=== PATIENT | male | born 1990 | race Two or more races ===

== ENCOUNTER 2019-11-19 10:19 | Emergency (ER) | payer OTHER ==
[2019-11-19] MEDS ORDERED: BUPIVACAINE 0.5% PF 10 ML VIAL SUBQ STA (11:44)
--- NOTE | 2019-11-19 12:31 | XRAY Report ---
Reason: index finger nail injury from a bite Procedure Date: 11/19/2019 Accession Number: [id number] / [id number] Procedure: XR - Hand 3 View RT CPT Code: Final Report FULL RESULT: EXAM: RIGHT HAND RADIOGRAPHY EXAM DATE: 11/19/2019 11:54 AM. CLINICAL HISTORY: Index finger nail injury from a bite. COMPARISON: None. TECHNIQUE: 3 views. FINDINGS: Bones: Normal. No fractures or bone lesions. Joints: Normal. No subluxations. Soft Tissues: Normal. No soft tissue swelling. IMPRESSION: Normal hand radiography. RADIA
--- NOTE | 2019-11-19 13:58 | ED Physician Documentation ---
PD HPI UPPER EXT INJURY - Stated complaint Stated Complaint: DOG BITE - Chief complaint Chief Complaint: Laceration - History obtained from History obtained from: Patient - History of Present Illness Location: Right, Finger (index) Type of injury: Other (dog bite) Where injury occurred: Home Timing - onset: Today Timing - duration: Minutes Timing - details: Abrupt onset, Still present Improved by: Rest, Immobilization Worsened by: Moving, Palpating Associated symptoms: No: Weakness, Numbness, Tingling, Swelling, Discolored Contributing factors: No: Anticoagulated Similar symptoms before: Has not had sx before Recently seen: Not recently seen - Additonal information Additional information: 29-year-old male was not wanting his dog to come in from the garage into the house. He went to grab the dog who was scampering into the house and the dog turned and bit his hand. He has a puncture wound to the right index finger through the nail with some bleeding. He believes he is up-to-date on his immunizations had a tetanus booster when he went to the [facility] 3 years ago. Review of Systems Constitutional: denies: Fever Eyes: denies: Decreased vision Ears: denies: Ear pain Nose: denies: Congestion Respiratory: denies: Dyspnea GI: denies: Vomiting PD PAST MEDICAL HISTORY - Past Medical History Past Medical History: No - Present Medications Home Medications: Ambulatory Orders Medication Instructions Recorded Confirmed Amox/Clav 875/125 [Augmentin] 1 each PO Q12H #10 tablet 11/19/19 - Allergies Allergies/Adverse Reactions: Allergies Allergy/AdvReac Type Severity Reaction Status Date / Time No Known Drug Allergies Allergy Verified 11/19/19 10:23 - Social History Does the pt smoke?: No Smoking Status: Never smoker Does the pt drink ETOH?: No Does the pt have substance abuse?: No - Immunizations Immunizations are current?: Yes PD ED PE NORMAL - Vitals Vital signs reviewed: Yes (hypertensive) - General General: Alert and oriented X 3, No acute distress, Well developed/nourished - HEENT HEENT: Atraumatic, PERRL, EOMI - Neck Neck: Supple, no meningeal sign - Respiratory Respiratory: No respiratory distress - Derm Derm: Normal color, Warm and dry - Extremities Extremities: No deformity, No edema, Other (There is a puncture wound to the right index finger over the ulnar surface proximally. The nail is broken and punctured. There is ecchymosis to the opposite side of this consistent with an acute bite.) - Neuro Neuro: Alert and oriented X 3, plate maker zinc 2-12 intact, No motor deficit, No sensory deficit, Normal speech Eye Opening: Spontaneous Motor: Obeys Commands Verbal: Oriented GCS Score: 15 - Psych Psych: Normal mood, Normal affect Results - Vitals Vitals: Vital Signs - 24 hr 11/19/19 11/19/19 10:23 14:48 Temperature 37.0 C Heart Rate 82 74 Respiratory 16 16 Rate Blood Pressure 134/81 H 131/84 H O2 Saturation 100 98 Oxygen O2 Source Room air - Rads (name of study) hand Radiology: Prelim report reviewed (Impression normal hand radiography.), EMP read indepedently, See rad report Procedures - General procedure General procedure: Nail removal: With use of a digital block with half percent bupivacaine the fingertip was washed with Hibiclens and saline the nail was partially removed and the puncture wound to the nailbed was copiously irrigated. PD MEDICAL DECISION MAKING - ED course Complexity details: reviewed results, re-evaluated patient, considered differential, d/w patient ED course: 29-year-old male with a puncture wound to the nailbed of the right index finger. This unfortunately necessitated removal of the nail and administration of a digital block. Despite repeated attempts and time the gentle digital block was not entirely effective on the radial surface. The nail on the radial surface was left intact and dissected down to the puncture wound. Allowing cleaning of the puncture wound. He is now placed on prophylactic antibiotic. Departure - Departure Disposition: 01 Home, Self Care Clinical Impression: Dog bite of fingernail Qualifiers: Encounter type: initial encounter Qualified Code(s): S61.359A - Open bite of unspecified finger with damage to nail, initial encounter Condition: Stable Instructions: ED Bite Dog, ED Removal Nail Follow-Up: [facility] [Provider Group] Prescriptions: Amox/Clav 875/125 [Augmentin] 1 each PO Q12H #10 tablet Discharge Date/Time: 11/19/19 15:24
[2019-11-19 14:48] VITALS: BP 131/84
== END 2019-11-19 15:24 | disposition home or self-care (01) ==
LOC: ED 10:19
DX: S61.350A Open bite of right index finger with damage to nail, initial encounter (principal); W54.0XXA Bitten by dog, initial encounter; Y93.89 Activity, other specified; Y92.009 Unspecified place in unspecified non-institutional (private) residence as the place of occurrence of the external cause
CPT/HCPCS: 11730; 99282; 99283